=== PATIENT | female | born 1995 ===

== ENCOUNTER 2021-09-18 10:00 | Outpatient (RCR) | payer BC, SELFPAY ==
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
[2021-08-23 13:08] VITALS: BMI 20.1
--- NOTE | 2021-08-23 13:23 | PC.ADMIT ---
Patient is a 26 year old female who is attending PHP on the advice of her therapist d/t increase in depression and anxiety sxs. Feeling overwhelmed and reports history of self harm cutting self superficially. Patient reports she quit her job in [place] recently stating she was working remotely however they are transitioning to in person and patient stated that would not work for her at this time and did not want to move to [place]. She stated she is trying to figure things out. Patient struggling with recent break up of a 3 year relationship and has moved back home currently living with her mother. Patient also stated that the holidays are difficult for her. Patient is alert and oriented x4. Calm and cooperative. Presents with depressed mood, anxious affect. Denied SI or thoughts to harm self at present. Asked who could she contact if feeling unsafe and she stated her mother whom she lives with whom is supportive or her sister or ex girlfriend. Medications reconciled with patient and patient's pharmacy. Patient reports taking medications as prescribed.
--- NOTE | 2021-08-23 15:27 | PC.NURSE ---
Case opened in treatment team.
--- NOTE | 2021-08-30 13:00 | HO.PHPPROGNO ---
Subjective Subjective Date of Service: 08/30/21 Reason For Visit: Depression, Anxiety Guardianship: No Medical Problems Affecting Mental Status: No Interim History: Anh reports feeling ?okay ?today. She reports she has not noticed a decrease in depressive symptoms, and that she feels tired, but ?not as overwhelmed ? regarding any anxiety symptoms. Reports her appetite is good, states that she is eating 2 meals daily, which is normal for her. Denies any thoughts of harm to self or others, no safety concern at this time. Reports feeling tired, and that she is not sleeping as well. She states this is more related to using her phone at night and computer while in bed. Medication Compliance: Yes Side effects from medications: No Attending Groups: Yes Review of Systems Acute medical concerns: No Medical Review of Systems: unchanged Review of Systems Review of Systems Yes all other systems are reviewed and are negative Constitutional: Reports no additional constitutional complaints Mental Status Exam Mental Status Exam Narrative: Well developed, well nourished female, in no apparent distress. No involuntary movements noted, motor activity calm. Posture within normal limits, sitting upright. Fully attentive during encounter. Patient Appearance: Well Grooomed and Appropriate Patient Orientation: Person, Place, Time and Situation Level of Consciousness: Appropriate and Alert Patient Behavior: Appropriate, Cooperative and Good Eye Contact Mood Description: Depressed Affect Description: Appropriate and Depressed Patient Cognition Impaired: No Ability to Follow Directions: Excellent Speech Pattern: Clear, Appropriate, Spontaneous Speech and Coherent Memory Description: Intact Hallucinations: None Delusions: Not Present Thought Process: Intact, Goal Oriented and Linear Thought Content: positive for Intact, positive for Goal Oriented and positive for Linear Depressive Symptoms: Increased Anxiety, Difficulty Sleeping, Loss of Int. in Activity, Feelings of Worthlessness, Hopelessness, Isolating-Friends/Family, Feelings of Guilt, Unhappiness, Increased Fatigue, Low Self Esteem, Loss of Energy and Difficulty Concentrating Judgement: Fair Diagnostics Vital Signs (24Hr): BMI result Body Mass Index 20.1 Assessment & Plan Assessment & Plan (1) Severe episode of recurrent major depressive disorder, without psychotic features: Status: Acute Code(s): F33.2 - Major depressive disorder, recurrent severe without psychotic features Assessment and Plan: Anh reports feeling ?okay ?today. She reports she has not noticed a decrease in depressive symptoms, and that she feels tired, but ?not as overwhelmed ? regarding any anxiety symptoms. Reports her appetite is good, states that she is eating 2 meals daily, which is normal for her. Denies any thoughts of harm to self or others, no safety concern at this time. Reports feeling tired, and that she is not sleeping as well. She states this is more related to using her phone at night and computer while in bed. Discussed current medication regimen. Client denies any side effects from Wellbutrin, which was started last week. Client reports that she has had higher dose of Celexa in the past, with really no improvement in depressive symptoms. She is willing to increase Wellbutrin dose today. (2) DANIELA (generalized anxiety disorder): Status: Acute Code(s): F41.1 - Generalized anxiety disorder Assessment and Plan: Reports some decrease in anxiety symptoms overall. States that she took a walk with a friend on Saturday, and went to the gym yesterday. She reports that increasing her physical activity is helping to lessen her anxiety. We discussed combination of regular exercise, medication, and therapy in order to address both depression and anxiety going forward. Education provided on benefits of each. (3) PTSD (post-traumatic stress disorder): Status: Acute Code(s): F43.10 - Post-traumatic stress disorder, unspecified Assessment and Plan: 1. Increased Wellbutrin SR to 100 mg b.i.d.. Script sent to pharmacy. 2. Follow-up as per protocol. Patient educated on: diagnosis, medication risk/benefits and therapeutic strategies Informed Consent: understands Reason for contiued partial hosp. stay Substantial Risk for: inability to function and med/psych decompensation Certification I certify that partial hospital treatment is medically necessary due to the symptoms and problems resulting from the patient's mental illness and the failure to treat the patient at the partial hospital level of care would likely result in the patient requiring inpatient psychiatric care which could not be prevented at a less intensive level of care. I spent minutes with the patient and/or on the patient floor today, greater than?50% of which was spent counseling/coordinating care. Discharge Plan Discharge Attending provider: Elver Clark Primary Care Provider: Citlalli Quiros Medications: New bupropion HCl [Wellbutrin SR] 100 mg tablet sustained-release 12 hr 100 mg PO BID 14 Days Qty: 28 RF: 0 No Action citalopram [Celexa] 20 mg Tablet 20 mg PO DAILY RF: 0 Referrals: Citlalli Quiros PA [Primary Care Provider] - 1 Week Telehealth Telehealth Location of provider rendering services: practice address Location of patient: address on file Patient Identification confirmed using: Name, : Yes Telehealth method: video Patient verbally consented to treatment: Yes Patient verbally consented to billing insurance company: Yes Patient informed of any privacy concerns related to visit: Yes Time spent with patient (mins): 15
--- NOTE | 2021-08-31 14:58 | PC.NURSE ---
I left a message for pt asking her to pls call to discuss how treatment is going and aftercare needs.
--- NOTE | 2021-09-05 13:45 | PC.NURSE ---
After speaking with pt and getting her permission, I called and put in a referral for her to see Dr. Alan Thorpe at [facility] in [place], [place]. ([address], [address], [place] [address]). The hand mixer took demographics and said they would review and then reach out to pt directly. She said Dr. Thorpe is scheduling first time appointments in September. I called pt and let her know about this and she sounded pleased.
--- NOTE | 2021-09-06 15:14 | HO.PHPPROGNO ---
Subjective Subjective Date of Service: 09/06/21 Reason For Visit: Depression, Anxiety Guardianship: No Medical Problems Affecting Mental Status: No Interim History: Client reports no real improvement in mood from wellbutrin and celexa. She reports she has not been taking the Celexa or the 2nd daily dose of Wellbutrin consistently, as she forgets. She also states that she has not been sleeping as well, and that has found herself more irritated. No thoughts of self-harm, no safety concern at this time. Has also started new job, works in evenings. Medication Compliance: Intermittent Side effects from medications: No (uncertain if irritable mood &diff sleep r/t dose increase wellbutrin) Attending Groups: Yes Review of Systems Acute medical concerns: No Medical Review of Systems: unchanged Review of Systems Review of Systems Yes all other systems are reviewed and are negative Constitutional: Reports difficulty sleeping Eyes: Reports no additional eye complaints Reports system reviewed and no additional complaints, except as documented Cardiovascular: Reports no additional cardiovascular complaints Respiratory: Reports no additional respiratory complaints Gastrointestinal: Reports no additional gastrointestinal complaints Genitourinary: Reports no additional female genitourinary complaints Musculoskeletal: Reports no additional musculoskeletal complaints Skin/Breast: Reports system reviewed and no additional complaints, except as docu Reports system reviewed and no additional complaints, except as documented Psychiatric: Reports irritability Endocrine: Reports no additional endocrine complaints Hematologic/Lymphatic: Reports no additional hematologic/lymphatic complaints Allergic/Immunologic: Reports no additional allergic/immunologic complaints Mental Status Exam Mental Status Exam Narrative: Well developed, well nourished female, in no apparent distress. No involuntary movements noted, motor activity calm. Posture within normal limits, sitting upright. Patient Appearance: Well Grooomed and Appropriate Patient Orientation: Person, Place, Time and Situation Level of Consciousness: Appropriate and Alert Patient Behavior: Appropriate, Cooperative and Good Eye Contact Mood Description: Depressed and Anxious Affect Description: Appropriate, Depressed and Anxious Patient Cognition Impaired: No Ability to Follow Directions: Excellent Speech Pattern: Clear, Appropriate, Spontaneous Speech and Coherent Memory Description: Intact Hallucinations: None Delusions: Not Present Thought Process: Intact, Goal Oriented and Linear Thought Content: positive for Intact, positive for Goal Oriented and positive for Linear Depressive Symptoms: Increased Anxiety, Difficulty Sleeping, Loss of Int. in Activity, Feelings of Guilt, Unhappiness, Increased Fatigue, Low Self Esteem, Loss of Energy and Difficulty Concentrating Judgement: Fair Diagnostics Vital Signs (24Hr): BMI result Body Mass Index 20.1 Assessment & Plan Assessment & Plan (1) Severe episode of recurrent major depressive disorder, without psychotic features: Status: Acute Code(s): F33.2 - Major depressive disorder, recurrent severe without psychotic features Assessment and Plan: Client reports no real improvement in mood from wellbutrin and celexa. Continues with dysphoric mood, feeling anxiety sx of nervousness, excessive worry, restlessness, irritability. She reports she has not been taking the Celexa or the 2nd daily dose of Wellbutrin consistently, as she forgets. She also states that she has not been sleeping as well, and that has found herself more irritated. No thoughts of self-harm, no safety concerns at this time. She states she is not sure if her symptoms of irritability and poor sleep are related to her medication use, as she has not been consistently adherent to regimen. She also has started a new job in the evenings, and these hours of work may also be a causal factor. We discussed ways to ensure she remember afternoon dose of Wellbutrin. She was advised to take the Celexa in the morning when she takes her morning medication. Also discussed writing down dates were she finds herself more irritated or poor sleep, so as to compare to see if they are directly related to medication. She was in agreement with this plan. She does not require any refills at this time. (2) DANIELA (generalized anxiety disorder): Status: Acute Code(s): F41.1 - Generalized anxiety disorder (3) PTSD (post-traumatic stress disorder): Status: Acute Code(s): F43.10 - Post-traumatic stress disorder, unspecified Assessment and Plan: 1. Continue current medications as prescribed at this time. 2. Client to journal dates of feeling more irritable/less sleep, to track as to whether or not it is caused by her medication. Client will also track days that she remembers to take her medications as prescribed. 3. Follow-up as per protocol. Patient educated on: diagnosis, medication risk/benefits and therapeutic strategies Informed Consent: understands Reason for contiued partial hosp. stay Substantial Risk for: inability to function and med/psych decompensation Certification I certify that partial hospital treatment is medically necessary due to the symptoms and problems resulting from the patient's mental illness and the failure to treat the patient at the partial hospital level of care would likely result in the patient requiring inpatient psychiatric care which could not be prevented at a less intensive level of care. I spent minutes with the patient and/or on the patient floor today, greater than?50% of which was spent counseling/coordinating care. Discharge Plan Discharge Attending provider: Elver Clark Primary Care Provider: Citlalli Quiros Medications: New bupropion HCl [Wellbutrin SR] 100 mg tablet sustained-release 12 hr 100 mg PO BID 14 Days Qty: 28 RF: 0 No Action citalopram [Celexa] 20 mg Tablet 20 mg PO DAILY RF: 0 Referrals: Citlalli Quiros, PA [Primary Care Provider] - 1 Week Telehealth Telehealth Location of provider rendering services: practice address Location of patient: address on file Patient Identification confirmed using: Name, : Yes Telehealth method: video Patient verbally consented to treatment: Yes Patient verbally consented to billing insurance company: Yes Patient informed of any privacy concerns related to visit: Yes Time spent with patient (mins): 15
--- NOTE | 2021-09-15 16:29 | HO.PHPPROGNO ---
Subjective Subjective Date of Service: 09/15/21 Reason For Visit: Depression, Anxiety Guardianship: No Medical Problems Affecting Mental Status: No Interim History: Anh reports she feels ?okay ?today. Reports she stopped Wellbutrin due to feeling irritable and activated. Continue Celexa, not sure if it is fully effective, considering dose increase. Medication Compliance: Yes Side effects from medications: Yes (Stopped Wellbutrin due to feeling irritable and activated.) Attending Groups: Yes Review of Systems Acute medical concerns: No Medical Review of Systems: unchanged Review of Systems Review of Systems Yes all other systems are reviewed and are negative Constitutional: Reports no additional constitutional complaints Mental Status Exam Mental Status Exam Narrative: Well developed, well nourished female, in no apparent distress. No involuntary movements noted, motor activity calm. Posture within normal limits, sitting upright. Patient Appearance: Well Grooomed and Appropriate Patient Orientation: Person, Place, Time and Situation Level of Consciousness: Appropriate and Alert Patient Behavior: Appropriate, Cooperative and Good Eye Contact Mood Description: Depressed and Anxious Affect Description: Appropriate, Depressed and Anxious Patient Cognition Impaired: No Ability to Follow Directions: Excellent Speech Pattern: Clear, Appropriate, Spontaneous Speech and Coherent Memory Description: Intact Hallucinations: None Delusions: Not Present Thought Process: Intact, Goal Oriented and Linear Thought Content: positive for Intact, positive for Goal Oriented, positive for Linear and positive for Logical Depressive Symptoms: Increased Anxiety, Difficulty Sleeping, Loss of Int. in Activity, Low Self Esteem and Difficulty Concentrating Judgement: Good Diagnostics Vital Signs (24Hr): BMI result Body Mass Index 20.1 Assessment & Plan Assessment & Plan (1) Severe episode of recurrent major depressive disorder, without psychotic features: Status: Acute Code(s): F33.2 - Major depressive disorder, recurrent severe without psychotic features Assessment and Plan: Client continues with some symptoms of depression and anxiety, although reports overall she is feeling okay. She describes her anxiety and depression as present, but not as deep . Reports that she stop taking the Wellbutrin as it was too activating and made her irritable. Is considering increase in citalopram, as she has been at higher dose in the past with positive affect. She reports that in the past she has not liked the sexual side effects at the higher dose. Alternative medications such as Prozac and Zoloft as possibilities were discussed. Medication education, including risks and benefits of each med provided. (2) DANIELA (generalized anxiety disorder): Status: Acute Code(s): F41.1 - Generalized anxiety disorder (3) PTSD (post-traumatic stress disorder): Status: Acute Code(s): F43.10 - Post-traumatic stress disorder, unspecified Assessment and Plan: 1. Increase Celexa to 30 mg x 1 week. If tolerated well, pain client plans to increase to 40 mg if needed. Client has ample supply of medications available, does not need script at this time. 2. Client will wait until meet with outpatient provider in several weeks to discuss any possible med changes. 3. Follow-up as per protocol. Patient educated on: diagnosis, medication risk/benefits and therapeutic strategies Informed Consent: understands Reason for contiued partial hosp. stay Substantial Risk for: inability to function and med/psych decompensation Certification I certify that partial hospital treatment is medically necessary due to the symptoms and problems resulting from the patient's mental illness and the failure to treat the patient at the partial hospital level of care would likely result in the patient requiring inpatient psychiatric care which could not be prevented at a less intensive level of care. I spent minutes with the patient and/or on the patient floor today, greater than?50% of which was spent counseling/coordinating care. Discharge Plan Discharge Attending provider: Elver Clark Primary Care Provider: Citlalli Quiros Medications: No Action citalopram [Celexa] 20 mg Tablet 20 mg PO DAILY RF: 0 Referrals: Citlalli Quiros, [place] [Primary Care Provider] - 1 Week Stand Alone Forms: Patient Portal Discharge page Telehealth Telehealth Location of provider rendering services: practice address Location of patient: address on file Patient Identification confirmed using: Name, : Yes Telehealth method: video Patient verbally consented to treatment: Yes Patient verbally consented to billing insurance company: Yes Patient informed of any privacy concerns related to visit: Yes Time spent with patient (mins): 15
--- NOTE | 2021-09-18 08:19 | PC.NURSE ---
I called and LM for pt's therpapist, Mercedez Finn ([phone]). I let her know about pt's successful discharge from [facility] today.
--- NOTE | 2021-09-18 12:10 | PC.NURSE ---
Patient scheduled to discharge from the program today. Spoke to patient and she stated Celexa was increased by the provider to 30 mg and she started that dose yesterday. Stated she is taking medications as prescribed. Denied SI. Feels ready for discharge.
--- NOTE | 2021-09-18 15:56 | P.PNPSP_ITS ---
Subjective Subjective Date of Service: 09/18/21 Reason For Visit: Depression, Anxiety Guardianship: No Medical Problems Affecting Mental Status: No Interim History: Anh reports that ?I feel like I am in as good a place that I can be ?. Does report that she experienced some anxiety over the weekend. Reports utilizing her coping skills, but is requesting a p.r.n. medication in addition to prescribed Celexa. Medication Compliance: Yes Side effects from medications: No Attending Groups: Yes Review of Systems Acute medical concerns: No Medical Review of Systems: unchanged Review of Systems Review of Systems Yes all other systems are reviewed and are negative Constitutional: Reports no additional constitutional complaints Psychiatric: Reports no additional psychiatric complaints and Reports anxiety Mental Status Exam Mental Status Exam Narrative: Well developed, well nourished female, in no apparent distress. No involuntary movements noted, motor activity calm. Posture within normal limits, sitting upright. Patient Appearance: Well Grooomed and Appropriate Patient Orientation: Person, Place, Time and Situation Level of Consciousness: Appropriate and Alert Patient Behavior: Appropriate, Cooperative and Good Eye Contact Mood Description: Appropriate and Anxious Affect Description: Calm and Appropriate Patient Cognition Impaired: No Ability to Follow Directions: Excellent Speech Pattern: Clear, Appropriate, Spontaneous Speech and Coherent Memory Description: Intact Hallucinations: None Delusions: Not Present Thought Process: Intact, Goal Oriented and Linear Thought Content: positive for Intact, positive for Goal Oriented, positive for Linear and positive for Logical Depressive Symptoms: Increased Anxiety, Difficulty Sleeping, Loss of Int. in Activity and Low Self Esteem Judgement: Good Diagnostics Vital Signs (24Hr): BMI result Body Mass Index 20.1 Assessment & Plan Assessment & Plan (1) Severe episode of recurrent major depressive disorder, without psychotic features: Status: Acute Code(s): F33.2 - Major depressive disorder, recurrent severe without psychotic features Assessment and Plan: Anh reports that ?I feel like I am in as good a place that I can be ?. Does report that she experienced some anxiety over the weekend. Reports utilizing her coping skills, but is requesting a p.r.n. medication in addition to prescribed Celexa. No SI/HI, no safety concerns. Reports sleep is adequate. Depressive sx are still present, but have improved. Has found groups helpful, has been practicing skills that she has learned while here. States that at times she has had some increased anxiety which she has found debilitating. Is looking for something short-term in order to help her when these moments occur. Medications discussed, including p.r.n. hydroxyzine. She discussion included risks, benefits, side effects, and alternatives. She was in agreement to trial a low-dose prn. (2) DANIELA (generalized anxiety disorder): Status: Acute Code(s): F41.1 - Generalized anxiety disorder (3) PTSD (post-traumatic stress disorder): Status: Acute Code(s): F43.10 - Post-traumatic stress disorder, unspecified Assessment and Plan: 1. Add hydroxyzine 25 mg t.i.d. p.r.n. for anxiety. Fourteen day supply sent to pharmacy. 2. Continue Celexa 30 mg daily. 3. Patient stable for discharge from [facility] program. 4. Patient to follow-up with outpatient provider going forward. Patient educated on: diagnosis, medication risk/benefits and therapeutic strategies Informed Consent: understands Reason for contiued partial hosp. stay Substantial Risk for: stable for discharge Certification I certify that partial hospital treatment is medically necessary due to the symptoms and problems resulting from the patient's mental illness and the failure to treat the patient at the partial hospital level of care would likely result in the patient requiring inpatient psychiatric care which could not be prevented at a less intensive level of care. I spent minutes with the patient and/or on the patient floor today, greater than?50% of which was spent counseling/coordinating care. Discharge Plan Discharge Attending provider: Elver Clark Primary Care Provider: Citlalli Quiros Medications: New hydroxyzine pamoate [Vistaril] 25 mg capsule 25 mg PO TID PRN (Reason: anxiety) 14 Days Qty: 42 RF: 0 No Action citalopram [Celexa] 20 mg Tablet 30 mg PO DAILY RF: 0 Referrals: Citlalli Quiros, [place] [Primary Care Provider] - 1 Week Stand Alone Forms: Patient Portal Discharge page Telehealth Telehealth Location of provider rendering services: practice address Location of patient: address on file Patient Identification confirmed using: Name, : Yes Telehealth method: video Patient verbally consented to treatment: Yes Patient verbally consented to billing insurance company: Yes Patient informed of any privacy concerns related to visit: Yes Time spent with patient (mins): 15
== END 2021-09-19 07:07 | disposition home or self-care (01) ==
LOC: HO.PHPA 10:00
PROVIDERS: PCP Physician Assistant; Visit Provider Psychiatry & Neurology Psychiatry
DX: F33.2 Major depressive disorder, recurrent severe without psychotic features (principal); F41.1 Generalized anxiety disorder; F43.10 Post-traumatic stress disorder, unspecified; Z79.899 Other long term (current) drug therapy
CPT/HCPCS: 90791; 90853